=== PATIENT | female | born 1935 | race Hispanic/Latino ===

== ENCOUNTER → 2024-05-04 | Outpatient (CLI) | payer MEDICARE | END | disposition home or self-care (01) | LOC: RAH 10:54 | PROVIDERS: ATTEND Internal Medicine | DX: Z01.818 Encounter for other preprocedural examination (principal); I70.0 Atherosclerosis of aorta; M47.815 Spondylosis without myelopathy or radiculopathy, thoracolumbar region; E11.65 Type 2 diabetes mellitus with hyperglycemia; N18.2 Chronic kidney disease, stage 2 (mild); M81.0 Age-related osteoporosis without current pathological fracture; E03.9 Hypothyroidism, unspecified; M15.9 Polyosteoarthritis, unspecified | CPT/HCPCS: 71046 ==

== ENCOUNTER 2024-05-22 05:40 | Observation (INO) | payer MEDICARE ==
[2024-05-17 14:25] LABS: BASOPHILS # (AUTO) 0.05 K/uL (0.00-0.20); BASOPHILS % (AUTO) 0.6 % (0.0-5.0); EOSINOPHILS # (AUTO) 0.07 K/uL (0.00-0.70); EOSINOPHILS % (AUTO) 0.9 % (0.0-8.0); HEMATOCRIT 39.7 % (36-48); IMMATURE GRANULOCYTE ABSOLUTE 0.03 K/uL (0-1); LYMPHOCYTES # (AUTO) 1.8 K/uL (1.0-4.8); LYMPHOCYTES % (AUTO) 22.5 % (21.0-51.0); MEAN CORPUSCULAR HEMOGLOBIN 31.7 pg (27.0-33.0); MEAN CORPUSCULAR VOLUME 93.2 fL (79-99); MONOCYTES # (AUTO) 0.6 K/uL (0.1-1.0); MONOCYTES % (AUTO) 7.2 % (3.0-13.0); NEUTROPHILS # (AUTO) 5.5 K/uL (1.8-7.7); NEUTROPHILS % (AUTO) 68.4 % (40.0-77.0); PLATELET COUNT (AUTO) 201 K/uL (130-400); RED BLOOD CELL COUNT(AUTO) 4.26 MIL/uL (4.00-5.50); RED CELL DISTRIBUTION WIDTH 13.1 % (11.0-15.5); WHITE BLOOD COUNT (AUTO) 8.1 K/uL (4.8-10.8)
[2024-05-17 14:44] LABS: APPEARANCE,URINE CLEAR (CLEAR); BILIRUBIN,URINE NEGATIVE (NEGATIVE); COLOR,URINE COLORLESS (YELLOW); GLUCOSE, URINE (UA) 200 mg/dL (NEGATIVE); KETONES,URINE NEGATIVE (NEGATIVE); LEUKOCYTE ESTERASE ,URINE NEGATIVE Leu/uL (NEGATIVE); NITRATE,URINE NEGATIVE (NEGATIVE); OCCULT BLOOD,URINE NEGATIVE (NEGATIVE); PH,URINE 6.5 (5.0-8.0); PROTEIN,URINE NEGATIVE (NEGATIVE); UROBILINOGEN,URINE 0.2 mg/dL (0.2-1.0)
[2024-05-17 14:44] LABS: ALBUMIN 3.5 g/dL (3.5-5.0)
[2024-05-17 14:49] VITALS: BP 162/68; PULSE 78; RESP 18
[2024-05-17 14:49] LABS: ADD UA MICROSCOPIC YES
[2024-05-17 14:50] LABS: BACTERIA,URINE MOD /HPF (None Seen)
[~2024-05-22] VITALS: Ht 149.9 cm; Wt 80.1 kg
[2024-05-22] VITALS (27 sets, daily range): BP systolic 127–165; BP diastolic 48–80; PULSE 52–84; RESP 14–20; O2SAT 98
[~2024-05-22 05:40] MED LIST: ATOR10TA69 PO; GLIP10TA9 PO; LEVO50CA4 PO; PANT20TA18 PO
[2024-05-22] MEDS: ACETAMINOPHEN 1,000 MG/100 ML VIAL IV ONE (06:43)
[2024-05-22] MEDS: FAMOTIDINE 20MG VIAL IV ONE (06:43)
[2024-05-22] MEDS ORDERED: ROCURONIUM BROMIDE 10MG/1ML 5ML VL ONE (06:50)
[2024-05-22] MEDS ORDERED: FENTANYL CITRATE PF 50 MCG/1 ML 2ML VIAL ONE (06:50)
[2024-05-22] MEDS ORDERED: LIDOCAINE PF 100MG/5ML (2%) SYRINGE 5ML ONE (06:50)
[2024-05-22] MEDS ORDERED: PROPOFOL 10 MG/ML 20ML VIAL IV ONE (06:50)
[2024-05-22] MEDS ORDERED: ROPIVACAINE 0.5% 5MG/ML 30ML ONE (06:53)
[2024-05-22] MEDS ORDERED: KETAMINE 50MG/ML SYRINGE 50 MG/ML DISP.SYRIN ONE (06:54)
[2024-05-22] MEDS ORDERED: DEXAMETHASONE SOD PHOSPHATE 10MG/ML 1ML VIAL ONE (07:18)
[2024-05-22] MEDS ORDERED: ONDANSETRON 4MG INJ ONE (07:18)
[2024-05-22] MEDS: TRANEXAMIC ACID 1000MG/10ML ONE (07:27)
[2024-05-22] MEDS: CEFAZOLIN SODIUM 2 GM VIAL ONE (07:30)
[2024-05-22] MEDS: TRANEXAMIC ACID 1000MG/10ML IV ONE (08:25)
[2024-05-22] MEDS: ROPIVACAINE 0.5% 5MG/ML 30ML ONE (08:31)
[2024-05-22] MEDS: KETOROLAC 30MG VIAL (30MG/ML) ONE (08:31)
[2024-05-22] MEDS ORDERED: GLYCOPYRROLATE 0.2 MG/ML 5 ML VIAL ONE (08:34)
[2024-05-22] MEDS ORDERED: NEOSTIGMINE METHYLSULFATE 1MG/ML IV ONE (08:34)
[2024-05-22] MEDS: 0.9%NACL 1000ML 1,000 ML IV ONE (08:51)
[2024-05-22] MEDS: SULFAMETHOX-TMP DS 800/160 TAB PO SCH (09:00)
[2024-05-22] MEDS ORDERED: FERROUS FUMARATE 324 MG TABLET PO PRN (09:00)
[2024-05-22] MEDS: GABAPENTIN 100 MG CAPSULE PO SCH (09:00)
[2024-05-22] MEDS: KETOROLAC 15MG/ML VIAL (15MG/ML) IV SCH (09:00)
[2024-05-22] MEDS: POLYETHYLENE GLYCOL 3350 17 GM POWD.PACK PO SCH (09:00)
[2024-05-22] MEDS ORDERED: ONDANSETRON 4MG INJ IVP PRN (09:00)
[2024-05-22] MEDS: DOCUSATE SODIUM 100 MG CAP PO SCH (09:00)
[2024-05-22] MEDS: MEPERIDINE-PF 25 MG/ML SYG ONE ×2 (09:34→09:47)
[2024-05-22] MEDS: KETOROLAC 15MG/ML VIAL (15MG/ML) ONE (10:01)
[2024-05-22] MEDS: INSULIN HUMULIN R 100 UNIT/ML 3ML SQ SCH (11:30)
[2024-05-22] MEDS: 0.9%NACL 1000ML 1,000 ML IV SCH (14:24)
[2024-05-22] MEDS: CYCLOBENZAPRINE HCL 10 MG TABLET PO PRN (14:24)
[2024-05-22] MEDS: CEFAZOLIN SODIUM 2 GM VIAL IVPB SCH (14:28)
[2024-05-22 16:01] LABS: CREATININE 1.1 mg/dL (0.5-1.0); POTASSIUM 4.5 mmol/L (3.5-5.1)
[2024-05-22] MEDS: HYDROCODONE/ACETAMINOPHEN 5/325 MG TAB PO PRN (20:49)
[2024-05-22] MEDS: GLIPIZIDE XL 10MG TAB PO SCH (20:49)
[2024-05-22] MEDS ORDERED: NON-FORMULARY MEDICATION 1 EACH (Glipizide 10 MG) PO SCH (21:00)
[2024-05-23] VITALS (7 sets, daily range): BP systolic 100–144; BP diastolic 41–75; PULSE 63–91; RESP 16–20; O2SAT 93–98
[2024-05-23 05:11] LABS: HEMATOCRIT 30.3 % (36-48); MEAN CORPUSCULAR HEMOGLOBIN 32.5 pg (27.0-33.0); MEAN CORPUSCULAR VOLUME 98.4 fL (79-99); RED BLOOD CELL COUNT(AUTO) 3.08 MIL/uL (4.00-5.50); RED CELL DISTRIBUTION WIDTH 13.2 % (11.0-15.5); WHITE BLOOD COUNT (AUTO) 9.6 K/uL (4.8-10.8)
[2024-05-23 05:21] LABS: CREATININE 0.9 mg/dL (0.5-1.0)
[2024-05-23] MEDS: LEVOTHYROXINE 50 MCG TABLET PO SCH (06:18)
[2024-05-23] MEDS ORDERED: NON-FORMULARY MEDICATION 1 EACH (Levothyroxine Sodium (Levothyroxine) 50 MCG) PO SCH (09:00)
[2024-05-23] MEDS ORDERED: NON-FORMULARY MEDICATION 1 EACH (Pantoprazole Sodium 20 MG) PO SCH (09:00)
[2024-05-23] MEDS: PANTOPRAZOLE 40 MG TAB DR PO SCH (09:42)
[2024-05-23] MEDS: ASPIRIN 325MG EC TAB PO SCH (09:42)
[2024-05-23] MEDS: ATORVASTATIN 10 MG TABLET PO SCH (09:45)
[2024-05-23] MEDS: KETOROLAC 15MG/ML VIAL (15MG/ML) IV PRN (09:46)
[2024-05-23] MEDS: CALCIUM CARB 500MG PO PRN (20:09)
[2024-05-24] VITALS: BP 150/53; PULSE 87; RESP 16
[2024-05-24 03:55] VITALS: BP 132/51; PULSE 81; RESP 18
[2024-05-24 08:00] VITALS: BP 112/53; PULSE 93; RESP 18; O2SAT 96
[2024-05-24 12:02] VITALS: BP 173/59; PULSE 79; RESP 19
[2024-05-24] MEDS ORDERED: DOCU-116 PO (13:40)
[2024-05-24] MEDS ORDERED: ASPI-891 PO (13:40)
[2024-05-24] MEDS ORDERED: CYCL-309 PO (13:40)
[2024-05-24] MEDS ORDERED: HYDR-4060 PO (13:40)
[2024-05-24 16:00] VITALS: BP 138/51; PULSE 95; RESP 19
[2024-05-25] MEDS ORDERED: BISACODYL 10 MG SUPP.RECT RC PRN (09:00)
== END 2024-05-24 16:55 ==
LOC: DAH 05:40 → DAHIP 05:41 → 4CH 10:30
PROVIDERS: ADMIT Student in an Organized Health Care Education/Training Program; ATTEND Student in an Organized Health Care Education/Training Program
DX: M17.11 Unilateral primary osteoarthritis, right knee (principal); G89.18 Other acute postprocedural pain; E11.22 Type 2 diabetes mellitus with diabetic chronic kidney disease; N18.2 Chronic kidney disease, stage 2 (mild); G43.909 Migraine, unspecified, not intractable, without status migrainosus; E03.9 Hypothyroidism, unspecified; K21.9 Gastro-esophageal reflux disease without esophagitis; E66.9 Obesity, unspecified; Z79.899 Other long term (current) drug therapy
CPT/HCPCS: 82040; 85025; 87086 ×3; 87186 ×2; 84134; 86140; 81001; 36415 ×3; 93005; 87641; 96365; 96366; 96375; 64447; 27447; 82550; 80048 ×2; 82948 ×10; 73560; 97161; 97116 ×4; 96376 ×2; 85027; 97530 ×6; J1815; G0378 ×52; A4600; A4663; A4215 ×2; J3490 ×6; J3010; J1100; J7030; J2001; J2704; J2405; J1885 ×6; J2710; J2175 ×2; J2795 ×2; J0690 ×3; C1713 ×2; G0168; C1776 ×2; A4649 ×2; A6255; A5120; A4223; A4213; A4222; A4221

== ENCOUNTER → 2025-04-19 | Outpatient (CLI) | payer OTHER, MEDICARE ==
[~2025-04-19] MED LIST changes: +ASPI-891 PO; +CYCL-309 PO; +DOCU-116 PO; +GLIP10TA16 PO; -GLIP10TA9 PO; +HYDR-4060 PO; -LEVO50CA4 PO; +LEVO50CA5 PO
--- NOTE | 2025-04-19 16:33 | HMCIMG ---
ABD 1VW HISTORY: Abdominal pain COMPARISON: None FINDINGS: A frontal projection of the abdomen was obtained. A nonspecific bowel gas pattern is seen. Fecal material is seen in the colon. Degenerative changes of the thoracolumbar spine are noted. Bilateral hip joint space narrowing is seen. Sacroiliac joint space narrowing are also seen. IMPRESSION: 1. A nonspecific bowel gas pattern is seen.
== END | disposition home or self-care (01) ==
LOC: RAH 15:26
PROVIDERS: ATTEND Internal Medicine
DX: R19.5 Other fecal abnormalities (principal); R10.9 Unspecified abdominal pain; M47.815 Spondylosis without myelopathy or radiculopathy, thoracolumbar region; M25.852 Other specified joint disorders, left hip; M25.851 Other specified joint disorders, right hip; M53.3 Sacrococcygeal disorders, not elsewhere classified
CPT/HCPCS: 74018

== ENCOUNTER → 2025-11-19 | Outpatient (CLI) | payer OTHER, MEDICAID ==
--- NOTE | 2025-11-20 10:58 | HMCIMG ---
ULTRASOUND ABDOMEN Clinical Indication: Unspecified abdominal pain. Comparison: None available. Technique: Velasquez-scale and color Doppler sonographic evaluation of the abdomen was performed. Findings: Liver: The liver measures approximately 13 cm in craniocaudal dimension, within normal limits. Hepatic echotexture is grossly unremarkable without focal mass identified on the provided images. The main portal vein is patent with normal hepatopetal flow. Gallbladder: Status post cholecystectomy. Biliary Tree: The common bile duct measures approximately 7 mm in diameter, which can be within expected limits in the post-cholecystectomy state. No definite intrahepatic biliary ductal dilatation is identified. Pancreas: The pancreas is largely obscured by overlying bowel gas and is suboptimally evaluated. Spleen: The spleen measures approximately 8 cm in length, within normal limits, with no focal abnormality identified. Kidneys: The right kidney measures approximately 9.4 4.9 3.0 cm. The left kidney measures approximately 8.0 4.8 3.9 cm. Renal size and morphology are within expected limits. No definite hydronephrosis or focal renal mass is identified on the provided images. Aorta: The abdominal aorta is obscured by bowel gas and is not adequately evaluated. Inferior Vena Cava: The inferior vena cava appears within normal limits on the visualized portions. Ascites: No free intraperitoneal fluid is identified. Impression: 1. No sonographic evidence of acute intra-abdominal abnormality on this examination, within the limitations described. 2. Status post cholecystectomy with common bile duct measuring up to 7 mm, which may be within normal limits in this clinical context; correlate with liver function tests if clinically indicated. 3. Limited evaluation of the pancreas and abdominal aorta due to overlying bowel gas. Recommendations: 1. If there is persistent or worsening abdominal pain, or if laboratory abnormalities are present, further evaluation with contrast-enhanced CT or MRI of the abdomen may be considered in accordance with ACR Appropriateness Criteria for abdominal pain. 2. No routine follow-up imaging is recommended for the biliary system in the absence of clinical or laboratory concern. /[place]
--- NOTE | 2025-11-20 11:00 | HMCIMG ---
Exam: Pelvic Ultrasound, Non-Obstetric, Complete Indication: Right-sided pelvic pain. Comparison: None available. Technique: Transabdominal pelvic ultrasound was performed. Findings: Uterus: The uterus is surgically absent, compatible with prior hysterectomy. No abnormal mass is identified in the hysterectomy bed. Endometrium: Not applicable due to prior hysterectomy. Right Ovary/Adnexa: The right ovary is surgically absent, compatible with prior right oophorectomy. No right adnexal mass or fluid collection is identified. Left Ovary/Adnexa: The left ovary is surgically absent. No left adnexal mass or fluid collection is identified. Cul-de-sac: No free fluid is identified. Urinary Bladder: The urinary bladder is moderately distended with a prevoid volume of approximately 339 cc. Bladder wall thickness measures approximately 3 mm, within normal limits for the degree of distention. Bilateral ureteral jets are visualized. Impression: 1. Status post hysterectomy and bilateral oophorectomy. No adnexal mass, fluid collection, or sonographic abnormality identified to explain the patients right-sided pelvic pain. 2. Normal-appearing urinary bladder with bilateral ureteral jets visualized. Recommendations: In accordance with ACR Appropriateness Criteria, if pelvic pain persists or worsens and remains unexplained by ultrasound findings, further evaluation with contrast-enhanced CT or MRI of the pelvis may be considered based on clinical judgment and suspected etiology. /[place]
== END | disposition home or self-care (01) ==
LOC: RAH 09:40
PROVIDERS: ATTEND Internal Medicine
DX: K59.09 Other constipation (principal); N32.89 Other specified disorders of bladder; R10.9 Unspecified abdominal pain; Z90.49 Acquired absence of other specified parts of digestive tract; Z90.710 Acquired absence of both cervix and uterus; Z90.722 Acquired absence of ovaries, bilateral
CPT/HCPCS: 76700; 76856